=== PATIENT | female | born 1940 | race Asian ===

== ENCOUNTER 2021-04-27 08:57 | Inpatient (IN) | payer MEDICARE, MEDICAID ==
[~2021-04-27] VITALS: Ht 160 cm; Wt 70.0 kg
[2021-04-27] MEDS ORDERED: PANTOPRAZOLE SODIUM 40 MG/VIAL IV STA (09:17)
[2021-04-27 09:56] LABS: HEMATOCRIT. 40.2 % (36.0-48.0); HEMOGLOBIN. 14.2 g/dL (12.0-16.0); MEAN CORPUSCULAR HEMOGLOBIN 32.7 pg (28.0-32.0); MEAN CORPUSCULAR VOLUME 92.6 fL (81.0-99.0); MEAN PLATELET VOLUME 8.1 fl (7.4-10.4); PLATELET 269 x1000/uL (130-400); RED BLOOD CELL COUNT 4.34 mill/uL (4.2-5.4)
[2021-04-27 10:05] LABS: PROTHROMBIN TIME 10.8 sec (9.6-11.0)
[2021-04-27 10:15] LABS: CHLORIDE 98 mEq/L (98-107)
[2021-04-27 10:16] LABS: CLARITY URINE CLEAR (CLEAR); COLOR URINE YELLOW (YELLOW); KETONES URINE NEGATIVE (NEGATIVE); LEUKOCYTE ESTERASE URINE TRACE (NEGATIVE); NITRITE URINE NEGATIVE (NEGATIVE); OCCULT BLOOD URINE 1+ (NEGATIVE); PROTEIN URINE TRACE (NEGATIVE); SPECIFIC GRAVITY URINE 1.014 (1.005-1.030); UROBILINOGEN URINE 0.2 E.U./dL (0.2-1.0)
[2021-04-27 10:25] LABS: PLATELET ESTIMATE NORMAL
[2021-04-27] MEDS ORDERED: POTASSIUM CHLORIDE 20MEQ TABLET SR PO ONE (10:30)
[2021-04-27] MEDS ORDERED: SODIUM CHLORIDE 0.9% 250 ML IV ONE (11:30)
[2021-04-27] MEDS ORDERED: ACETAMINOPHEN 325MG TABLET PO PRN (12:45)
[2021-04-27] MEDS ORDERED: IPRATROPIUM/ALBUTEROL 0.5-3(2.5)MG/3ML NEB NEB PRN (12:45)
[2021-04-27] MEDS ORDERED: MORPHINE SULFATE 2 MG/ML CPJ (NOT FOR IM USE) IV PRN (12:45)
[2021-04-27] MEDS ORDERED: ACETAMINOPHEN 650MG SUPP PR PRN (12:45)
[2021-04-27] MEDS ORDERED: ONDANSETRON HCL 4MG/2ML INJ IV PRN (12:45)
[2021-04-27] MEDS ORDERED: HYDRALAZINE 20MG/ML VIAL IV PRN (12:45)
[2021-04-27] MEDS ORDERED: LORAZEPAM 2MG/ML CPJ IV PRN (12:45)
[2021-04-27 12:55] LABS: TOTAL IRON BINDING CAPACITY 237 ug/dL (250-450)
[2021-04-27 13:16] LABS: FERRITIN 239 ng/mL (10-291)
[2021-04-27] MEDS ORDERED: IPRATROPIUM/ALBUTEROL 0.5-3(2.5)MG/3ML NEB HHN ONE (13:30)
[2021-04-27] MEDS: DEXT 5%/0.45% NACL KCL 10MEQ/L 1,000 ML IV SCH ×2 (14:08→17:57)
[2021-04-27 14:44] LABS: VITAMIN B12 SERUM 1879 pg/mL (211-911)
[2021-04-27] MEDS ORDERED: CEFTRIAXONE 1 G PREMIX 50 ML IV SCH (15:00)
[2021-04-27 15:10] VITALS: BP 123/66
[2021-04-27 16:00] VITALS: BP 123/66
[2021-04-27 17:50] LABS: HEMATOCRIT 32.7 % (36.0-48.0); HEMOGLOBIN 11.7 g/dL (12.0-16.0); MEAN CORPUSCULAR HEMOGLOBIN 33.5 pg (28.0-32.0); MEAN CORPUSCULAR VOLUME 93.7 fL (81.0-99.0); PLATELET 209 x1000/uL (130-400); RED BLOOD CELL COUNT 3.49 mill/uL (4.2-5.4); RED CELL DISTRIBUTION WIDTH 13.6 % (11.6-14.6)
[2021-04-27] MEDS: PANTOPRAZOLE SODIUM 40 MG/VIAL IV SCH (17:51)
[2021-04-27 18:18] VITALS: BP 123/66
[2021-04-27] MEDS ORDERED: CEFTRIAXONE 1,000 MG in DEXTROSE 5% WATER 50 ML IV SCH ×2 (18:30→21:00)
[2021-04-27] MEDS ORDERED: AMLO10TA80 MT (19:28)
[2021-04-27] MEDS ORDERED: ATOR20TA65 MT (19:31)
[2021-04-27] MEDS ORDERED: PRED5TAB MT (19:31)
[2021-04-27] MEDS ORDERED: ASPI-1497 MT (19:31)
[2021-04-27 20:00] VITALS: BP 125/73
[2021-04-27] MEDS ORDERED: POTASSIUM CHLORIDE INJ 40 MEQ in DEXT 5% WATER 250 ML IV SCH (20:00)
[2021-04-27] MEDS: BUDESONIDE 0.5MG/2ML NEB HHN SCH (20:32)
[2021-04-28] VITALS: BP 127/64
[2021-04-28 00:48] LABS: HEMATOCRIT 30.9 % (36.0-48.0); HEMOGLOBIN 11.2 g/dL (12.0-16.0)
[2021-04-28] MEDS ORDERED: DEXT 5%/0.45% NACL KCL 10MEQ/L 1,000 ML IV SCH (02:00)
[2021-04-28 04:00] VITALS: BP 120/63
[2021-04-28] MEDS ORDERED: PRED5DRO22 RIGHTEYE (07:20)
[2021-04-28] MEDS ORDERED: TIMO5SOL9 EACHEYE (07:22)
[2021-04-28] MEDS ORDERED: XALAO EACHEYE (07:22)
[2021-04-28 07:30] LABS: CHLORIDE 106 mEq/L (98-107)
[2021-04-28 07:37] LABS: HEMATOCRIT. 30.5 % (36.0-48.0); MEAN CORPUSCULAR HEMOGLOBIN 33.6 pg (28.0-32.0); MEAN CORPUSCULAR VOLUME 92.9 fL (81.0-99.0); PLATELET 213 x1000/uL (130-400); RED BLOOD CELL COUNT 3.28 mill/uL (4.2-5.4); RED CELL DISTRIBUTION WIDTH 13.9 % (11.6-14.6)
[2021-04-28 07:39] LABS: LDL CHOLESTEROL 60 mg/dL (5-100)
[2021-04-28 07:40] LABS: HDL CHOLESTEROL 44 mg/dL (40-59)
[2021-04-28 07:42] LABS: T4 FREE 1.53 ng/dL (0.76-1.46)
[2021-04-28 08:00] VITALS: BP 135/72
[2021-04-28] MEDS ORDERED: TIMOLOL 0.5% OP SCH (09:00)
[2021-04-28] MEDS: PANTOPRAZOLE SODIUM 40 MG/VIAL IV SCH ×2 (09:32→17:00)
[2021-04-28] MEDS ORDERED: IOHEXOL-300 100 ML BOTTLE ONE (09:39)
[2021-04-28 12:00] VITALS: BP 119/70
[2021-04-28] MEDS ORDERED: POTASSIUM CHLORIDE 20MEQ TABLET SR PO NR (12:30)
[2021-04-28] MEDS: BUDESONIDE 0.5MG/2ML NEB HHN SCH (12:35)
[2021-04-28 12:38] LABS: PLATELET ESTIMATE NORMAL
[2021-04-28 16:00] VITALS: BP 142/75
[2021-04-28 17:37] VITALS: BP 142/75
[2021-04-28] MEDS ORDERED: [UNRECOGNIZED DRUG - OTHER] OP SCH (21:00)
[2021-04-28] MEDS ORDERED: LATANOPROST 0.005% OPHTH DROPS 2.5ML RIGHTEYE SCH (21:00)
== END 2021-04-28 18:46 | disposition home or self-care (01) | DRG 393 ==
LOC: ER 08:57 → SUPCPDRO 10:55 → 5WST 11:12 → EDBEDREQSVC 12:33 → EDBEDREQ 13:37 → EDBEDREQSVC 13:50 → ENRESERV 14:36
PROVIDERS: ADMIT Internal Medicine; ATTEND Internal Medicine
DX: K64.9 Unspecified hemorrhoids (principal); K57.91 Diverticulosis of intestine, part unspecified, without perforation or abscess with bleeding; N39.0 Urinary tract infection, site not specified; D62 Acute posthemorrhagic anemia; R73.9 Hyperglycemia, unspecified; E78.1 Pure hyperglyceridemia; E87.6 Hypokalemia; I11.9 Hypertensive heart disease without heart failure; J45.909 Unspecified asthma, uncomplicated; Z79.82 Long term (current) use of aspirin; Z82.49 Family history of ischemic heart disease and other diseases of the circulatory system
CPT/HCPCS: 36415; 71045; 74176; 74177; 80053; 80061; 81003; 82270; 82607; 82728; 83540; 83550; 83735; 84132; 84439; 84443; 85014; 85018; 85025; 85027; 86850; 86900; 86920; 87077; 87186; 93005; 93306; 93970; 94640; 99285; C1893; C9113; J0696; J2405; J3480; J7050; J7060; J7626; Q9967

== ENCOUNTER 2022-11-13 11:34 | Emergency (ER) | payer BC, MEDICAID ==
[~2022-11-13 11:34] MED LIST: AMLO10TA80 MT; ATOR20TA65 MT; PRED5DRO22 RIGHTEYE; PRED5TAB MT; TIMO5SOL9 EACHEYE; XALAO EACHEYE
== END 2022-11-13 12:27 | disposition left against medical advice (07) ==
LOC: ER 11:34
DX: Z53.21 Procedure and treatment not carried out due to patient leaving prior to being seen by health care provider (principal)